=== PATIENT | female | born 1930 | race Caucasian/White ===

== ENCOUNTER 2019-01-24 10:47 | Inpatient (IN) ==
[2019-01-24] MEDS ORDERED: ASPIRIN 325 MG TABLET PO STA (11:27)
[2019-01-24 11:44] LABS: Basophils # 0.1 10*3/uL (0.0-0.2); Basophils % 0.8 % (0.0-0.8); Eosinophils # 0.2 10*3/uL (0.0-0.87); Hematocrit 43.8 VOL% (35.7-47.0); Hemoglobin 13.8 GM/DL (12.0-16.0); Immature Granulocytes % 0.3 %; Immature Granulocytes Absolute 0.03 #; Lymphocytes # 2.4 10*3/uL (1.4-4.0); Mean Corpuscular HGB Conc 31.5 GM/DL (32-36); Mean Corpuscular Volume 98.4 FL (87-102); Mean Platelet Volume 11.5 FL (9.6-12.0); Monocytes % 10.5 % (1.7-12.7); Neutrophils % 59.4 % (38.7-73.9); Platelet Count 178 T/CUMM (130-400); Red Blood Count 4.45 MC/CUMM (3.8-5.5); Red Cell Distribution Width 14.2 % (9.3-17.3); White Blood Count 8.8 T/CUMM (4-12)
[2019-01-24 12:02] LABS: PT Patient Result 10.9 SECS
[2019-01-24 12:09] LABS: Calcium 9.3 MG/DL (8.5-10.1); Osmolality,Calculated 282.3 MOS/KG (273-304)
[2019-01-24] MEDS ORDERED: ACETAMINOPHEN 325 MG TABLET PO PRN (15:16)
[2019-01-24] MEDS ORDERED: ONDANSETRON 4 MG/2 ML VIAL IV PRN (15:16)
[2019-01-24] MEDS: DOCUSATE SODIUM 100 MG CAPSULE PO SCH (20:15)
[2019-01-25 05:43] LABS: Basophils # 0.1 10*3/uL (0.0-0.2); Basophils % 0.8 % (0.0-0.8); Eosinophils # 0.3 10*3/uL (0.0-0.87); Eosinophils % 4.4 % (0.00-10.9); Hematocrit 38.2 VOL% (35.7-47.0); Hemoglobin 12.2 GM/DL (12.0-16.0); Immature Granulocytes % 0.3 %; Immature Granulocytes Absolute 0.02 #; Lymphocytes # 1.6 10*3/uL (1.4-4.0); Mean Corpuscular HGB Conc 31.9 GM/DL (32-36); Mean Corpuscular Volume 98.7 FL (87-102); Mean Platelet Volume 12.4 FL (9.6-12.0); Monocytes % 13.3 % (1.7-12.7); Neutrophils % 54.2 % (38.7-73.9); Platelet Count 133 T/CUMM (130-400); Red Blood Count 3.87 MC/CUMM (3.8-5.5); Red Cell Distribution Width 14.3 % (9.3-17.3); White Blood Count 5.9 T/CUMM (4-12)
[2019-01-25 06:04] LABS: Calcium 9.1 MG/DL (8.5-10.1); Osmolality,Calculated 282.1 MOS/KG (273-304)
[2019-01-25] MEDS ORDERED: FUROSEMIDE 40 MG TABLET PO SCH (09:00)
[2019-01-25] MEDS ORDERED: SPIRONOLACTONE 25 MG TABLET PO SCH (09:00)
[2019-01-25] MEDS ORDERED: MAGNESIUM OXIDE 400 MG TABLET PO SCH (09:00)
[2019-01-25] MEDS ORDERED: ALLOPURINOL 100 MG TABLET PO SCH (09:00)
[2019-01-25] MEDS ORDERED: BENAZEPRIL 10 MG TABLET PO SCH (09:00)
[2019-01-25] MEDS ORDERED: SIMVASTATIN 10 MG TABLET PO SCH (09:00)
[2019-01-25] MEDS ORDERED: PANTOPRAZOLE 40 MG TABLET PO SCH (09:00)
[2019-01-25] MEDS ORDERED: ASPIRIN EC 81 MG TABLET PO SCH (09:00)
[2019-01-25] MEDS ORDERED: SERTRALINE 25 MG TABLET PO SCH (09:00)
[2019-01-25] MEDS: DOCUSATE SODIUM 100 MG CAPSULE PO SCH (09:04)
[2019-01-25] MEDS ORDERED: GABAPENTIN 50 MG/ML 30 ML/BOTTLE PO SCH (09:35)
[2019-01-25] MEDS ORDERED: ACETAMINOPHEN 325 MG TABLET PO SCH (09:36)
[2019-01-25] MEDS ORDERED: GABAPENTIN 100 MG CAPSULE PO SCH (09:37)
[2019-01-25 12:42] VITALS: BP 123/62
== END 2019-01-25 14:02 | disposition home or self-care (01) | DRG 313 ==
LOC: N.ED 10:47 → N.EDINP 15:16 → N.TELES 15:45
PROVIDERS: ADMIT Family Medicine; ATTEND Family Medicine